=== PATIENT | female | born 1950 | race African-American/Black ===

== ENCOUNTER 2016-11-10 02:25 | Emergency (ER) | payer MEDICARE ==
[2014-04-21 14:21] VITALS: BMI 20.8
[~2016-11-10 02:25] MED LIST: CIMETIDINE200 MG PO; HYDROCODON-ACE1 EAC7 PO; IPRAT-ALBUT 0.5-3 ML UPD; LEVAQUIN500 MG PO; PREDNISONE10 MG PO; PREDNISONE20 MG PO; PROAIR HFA8.5 GM INH; SYMBICORT 16010.2 GM INH; VIBRAMYCIN 100100 MG PO; XANAX0.5 MG PO
[2016-11-10 03:01] LABS: BASOPHILS 0.1 % (0-2); EOSINOPHILS 0 % (0-7); HEMATOCRIT 46.1 % (36.0-48.0); IMMATURE GRANULOCYTES 0.3 % (0-5); LYMPHOCYTES 22.7 % (15-50); MCH 34.2 pg (26.0-34.0); MCHC 32.5 g/dL (31.0-37.0); MEAN PLATELET VOLUME 9.1 fL (7.4-10.4); MONOCYTES 3.8 % (2-11); NEUTROPHILS 73.1 % (40-80); RBC 4.39 10x6/uL (4.00-5.40); WBC 7.7 10x3/uL (4.8-10.8)
[2016-11-10 03:02] LABS: PLATELET COUNT 261 10x3/uL (130-400)
[2016-11-10 03:35] LABS: ALBUMIN 3.7 g/dL (3.4-5.0); ALKALINE PHOSPHATASE 80 U/L (46-116); ALT (SGPT) 16 U/L (10-68); BILIRUBIN - TOTAL 0.45 mg/dL (0.2-1.3); CALC OSMOLALITY 283 mosm/kg (275-300); CALCIUM 9.1 mg/dL (8.5-10.1); CARBON DIOXIDE 30.4 mmol/L (21.0-32.0); CHLORIDE - SERUM 105 mmol/L (98-107); CREATININE - SERUM 0.8 mg/dL (0.6-1.3); GLUCOSE 132 mg/dL (74-106); PROTEIN - SERUM 7.2 g/dL (6.4-8.2); SODIUM 141 mmol/L (136-145); UREA NITROGEN 16 mg/dL (7-18); eGFR NON AFRICAN AMERICAN 76 mL/min (90-120)
[2016-11-10 03:45] LABS: POTASSIUM - SERUM 5.4 mmol/L (3.5-5.1)
[2016-11-10 03:46] LABS: PRO BNP 110 pg/mL (0-125)
[2016-11-10 03:47] LABS: TROPONIN-I < 0.017 ng/mL (0.000-0.060)
== END 2016-11-10 04:25 | disposition home or self-care (01) ==
LOC: D.ER 02:25
PROVIDERS: Emergency Medicine
DX: J44.9 Chronic obstructive pulmonary disease, unspecified (principal); C34.11 Malignant neoplasm of upper lobe, right bronchus or lung; E87.5 Hyperkalemia; F17.200 Nicotine dependence, unspecified, uncomplicated; I44.60 Unspecified fascicular block